=== PATIENT | female | born 1955 | race Caucasian/White ===

== ENCOUNTER 2023-10-30 10:06 | Emergency (ER) | payer MEDICARE, OTHER, SELFPAY ==
[2023-10-30 10:08] VITALS: BP 158/78; BMI 32.9
--- NOTE | 2023-10-30 10:13 | ED.GENMED ---
History of Present Illness
General
Chief Complaint: Chest Pain
Source: patient
Exam Limitations: none
Time Seen by Provider: 10/30/23 10:12
History of Present Illness
History of Present Illness:
See MDM
Past History
Past History
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
ED Past Surgical History: Appendectomy, Bowel resection (Colon resection), Cholecystectomy, Gynecological (Hysterectomy) and Other (Bilateral mastectomy)
Social History
Tobacco: Non-smoker
Alcohol: None
Drug: None
Personal:
Living: alone
Employment: Employed
Family History
Family History: Diabetes, Hypertension and Other (Cancer ); Negative Early CAD, CAD or Sudden
Phy Exam
Physical Exam
Physical Exam:
See MDM
Scores
Heart Score for Chest Pain Patients
STEMI patient?: No
History: Moderately Suspicious
ECG: Normal
Age: >/= 65 years
Risk Factors: 1 or 2 Risk Factors
Troponin: </= Normal Limit
Heart Score for Chest Pain Patients: 4
Heart Score Risk: 20.3% MACE over next 6 weeks
Course
Orders/Labs/Results
Orders:
Orders
10/30/23 10:07
Electrocardiogram (*1) Urgent
Reason for Study: Chest Pain
CXR2 [CR Chest - 2 Views ] Urgent
Comment:
Reason For Exam: chest tightness
10/30/23 10:08
EKG- Treatment ONCE
10/30/23 10:28
Complete Blood Count/With Diff Urgent
Comprehensive Metabolic Panel Urgent
Troponin I Urgent
10/30/23 11:53
Troponin I Urgent
Abnormal Lab Results
10/30/23
10:28
RBC 4.07 L 10^6/uL
(4.20-5.40)
Hgb 10.6 L g/dL
(12.0-16.0)
Hct 32.1 L %
(37.0-47.0)
MCV 78.9 L fL
(81.0-99.0)
MCH 26.0 L pg
(27.0-31.0)
RDW 15.1 H %
(11.5-14.5)
MPV 10.5 H fL
(7.4-10.4)
Creatinine 0.5 L mg/dL
(0.6-1.0)
Glucose 124 H mg/dl
(70-99)
Total Protein 6.1 L g/dl
(6.3-8.2)
10/30/23 10:28
10/30/23 10:28
Vital Signs
Initial and Last Documented VS:
Initial Vital Signs
Temp Pulse Resp BP Pulse Ox
98.3 F 86 16 158/78 99
10/30/23 10:08 10/30/23 10:08 10/30/23 10:08 10/30/23 10:08 10/30/23 10:08
Last Documented Vital Signs
Temp Pulse Resp BP Pulse Ox
98.3 F 71 12 158/78 100
10/30/23 10:08 10/30/23 10:15 10/30/23 10:15 10/30/23 10:08 10/30/23 10:30
MDM/Problems Addressed
Differential Diagnosis Includes:
HPI and MDM Narrative:
68-year-old female presenting with chest pain. Patient noticed the chest pressure last night while cooking dinner. She called 911 because symptoms worsened and today. She does complain of shortness of breath when she walks. She denies cardiac
history. Patient given aspirin by EMS
On arrival, she is well-appearing and nontoxic. Heart regular rate and rhythm and lungs clear. Will obtain troponin, EKG and blood work
Physical exam
General: Well appearing and non-toxic
HEENT: protecting airway
Neck: appears supple
CV: No evidence of cyanosis. Regular rate and rhythm
Resp: No accessory muscle use. Lungs clear
Abd: Non-distended
Extremities: No deformities
Neuro: alert
Psych: Normal affect
Skin: Intact
Problems Addressed including Acute and Chronic Conditions affecting care:
1. Chest pain
Acuity: acute
Prognosis: stable
Details: EKG does not ischemic. Will obtain troponin and chest x-ray
Updates
Chest x-ray clear. Troponin negative x 2. Patient remains comfortable appearing. Given age and complaint, will place on cardiology callback tracker. Discussed calling PCP for earliest appointment
Differential Diagnosis (but not limited to): Noncardiac chest pain, ACS
Testing considered: D-dimer
Drug therapy (if applicable): OTC meds, please see d/c instruction regarding Rx drugs
Amount and/or Complexity of Data Reviewed
Clinical info obtained from: Patient
External data reviewed: N/A
Labs I independently reviewed (but not limited to): Troponin negative times
Radiology: X-ray independently reviewed: Chest x-ray clear
Pulse Ox: not hypoxic
EKG independently reviewed: Sinus rhythm, normal axis, No stemi
Transportation Job Titles: N/A
Critical Care: N/A
Risk of Complication:
Social Determinants of health: Good social support
Discussed with other providers: N/A
Escalation of Care includes Admit/Obs: After being observed in the Emergency Department, pt stable for discharge.
Occasional wrong word or 'sound a like' substitutions may have occurred due to the inherent limitations of voice recognition software. Read the chart carefully and recognize, using context, where substitutions have occurred.
*Critical Care Note
Total Time (30-74mins, 75-104mins- exclusive of procedures): Not Applicable
ED Attending Note
-
Portions of this chart may have been created with voice recognition software.� Occasional wrong word or��sound alike� substitutions may have occurred due to the inherent limitations of voice recognition software.
Discharge Plan
Departure
Patient Disposition: Home (Routine Discharge)
Date of Disposition: 10/30/23
Time of Disposition: 12:58
Patient with high blood pressure during this ER visit?: Yes
Discharge Problem:
Chest pain
Instructions: Chest Pain CBC Follow Up, BLOOD PRESSURE
Prescriptions:
No Action
albuterol sulfate 1 PUFF HFA aerosol inhaler
2 puff inhalation R Q4HPRN PRN (Reason: wheezing)
metformin 500 MG tablet extended release 24 hr
500 mg PO BID
amlodipine 5 MG tablet
5 mg PO DAILY
gabapentin 300 MG capsule
300 mg PO BID
acetaminophen [Tylenol Extra Strength] 500 MG tablet
1,000 mg PO Q6HPRN PRN (Reason: mild pain)
diazepam [Valium] 5 mg tablet
5 mg PO HS PRN (Reason: muscle spasm) Qty: 8 0RF
naproxen 500 mg tablet
500 mg PO BID PRN (Reason: pain) Qty: 15 0RF
Referrals:
Anish Moreno MD [Active] -
William Conte MD [Family Provider] -
Activity Restrictions/Additional Instructions:
Please return for any worsening symptoms.
You may return at any time if you have further concerns.
Please follow up with your doctor at the first available appointment, preferably this week.
You were placed on the cardiac callback tracker. Someone from their office should call you in the next few days. If you do not hear from them in the next few days, please give them a call.
Thank you for choosing [facility].
Interventions
Interventions:
*Risk Screen - Suicide Last Done: 10/30/23 10:08
*General Assessment Last Done: 10/30/23 10:08
*Neglect/Abuse Screening Last Done: 10/30/23 10:08
ED- Fall Risk Assessment Last Done: 10/30/23 10:08
*ED COVID-19 Vaccine History Last Done: 10/30/23 10:08
ED- Cardiac Assessment Last Done: 10/30/23 10:08
[2023-10-30 10:37] LABS: % Basophils 0.4 % (0-2); % Eosinophils 1.3 % (0-6); % Immature Granulocytes 0.4 % (0-0.5); % Lymphocytes 33.8 % (20.5-51.1); % Monocytes 5.5 % (1.7-9.3); % Neutrophils 58.6 % (42.2-75.2); Absolute Eosinophils 0.1 10^3/uL (0-0.7); Absolute Lymphocytes 1.6 10^3/uL (1.2-3.4); Absolute Monocytes 0.3 10^3/uL (0.1-0.6); Absolute Neutrophils 2.8 10^3/uL (1.4-6.5); Hematocrit 32.1 % (37.0-47.0); Hemoglobin 10.6 g/dL (12.0-16.0); Mean Corpuscular Volume 78.9 fL (81.0-99.0); Mean Platelet Volume 10.5 fL (7.4-10.4); Nucleated Red Blood Cells % 0 %; Platelet Count 177 10^3/uL (130-400); Red Blood Cell Count 4.07 10^6/uL (4.20-5.40); Red Cell Dist. Width 15.1 % (11.5-14.5); White Blood Cell Count 4.8 10^3/uL (4.8-10.8)
[2023-10-30 11:02] LABS: ALT (SGPT) 19 U/L (0-35); AST (SGOT) 23 U/L (14-36); Albumin 3.7 g/dl (3.5-5.0); Alkaline Phosphatase 69 U/L (38-126); Blood Urea Nitrogen 15 mg/dl (7-17); Calcium 8.6 mg/dl (8.4-10.2); Carbon Dioxide 26 mmol/L (22-30); Chloride 104 mmol/L (98-107); Estimated Creatinine Clearance 93 ml/min; Glucose 124 mg/dl (70-99); Sodium 139 mmol/L (135-145); Total Bilirubin 0.6 mg/dl (0.2-1.3); Total Protein 6.1 g/dl (6.3-8.2); eGFR > 60.00
[2023-10-30 11:04] LABS: Troponin I < 0.012 ng/ml
[2023-10-30 11:18] LABS: Potassium 3.7 mmol/L (3.5-5.1)
[2023-10-30 12:25] LABS: Troponin I < 0.012 ng/ml
== END 2023-10-30 13:35 | disposition home or self-care (01) ==
LOC: EMR 10:06
PROVIDERS: EMERGENCY PHYSICIAN Student in an Organized Health Care Education/Training Program; FAMILY PHYSICIAN Internal Medicine
DX: R07.89 Other chest pain (principal); J45.909 Unspecified asthma, uncomplicated; I10 Essential (primary) hypertension; E11.9 Type 2 diabetes mellitus without complications; G47.30 Sleep apnea, unspecified; Z15.09 Genetic susceptibility to other malignant neoplasm; Z82.49 Family history of ischemic heart disease and other diseases of the circulatory system; Z83.3 Family history of diabetes mellitus; Z85.3 Personal history of malignant neoplasm of breast; Z87.19 Personal history of other diseases of the digestive system; Z90.49 Acquired absence of other specified parts of digestive tract; Z90.710 Acquired absence of both cervix and uterus
CPT/HCPCS: 99283; 71046; 80053; 84484; 85025; 93005

== ENCOUNTER → 2023-11-03 07:32 | Outpatient (REF) | payer MEDICARE, OTHER, SELFPAY | LOC: DHCBC/DCA 07:32 | PROVIDERS: ATTENDING PHYSICIAN Internal Medicine Cardiovascular Disease; FAMILY PHYSICIAN Internal Medicine | DX: R07.89 Other chest pain (principal); R06.09 Other forms of dyspnea; E11.9 Type 2 diabetes mellitus without complications; I44.4 Left anterior fascicular block | CPT/HCPCS: 78452; 93017; A9500 ==

== ENCOUNTER → 2023-11-17 10:57 | Outpatient (REF) | payer MEDICARE, OTHER, SELFPAY ==
[2023-11-17 15:03] LABS: % Basophils 0.6 % (0-2); % Eosinophils 0.9 % (0-6); % Immature Granulocytes 0.3 % (0-0.5); % Lymphocytes 37.3 % (20.5-51.1); % Monocytes 4.6 % (1.7-9.3); % Neutrophils 56.3 % (42.2-75.2); Absolute Eosinophils 0.1 10^3/uL (0-0.7); Absolute Lymphocytes 2.6 10^3/uL (1.2-3.4); Absolute Monocytes 0.3 10^3/uL (0.1-0.6); Hemoglobin 10.8 g/dL (12.0-16.0); Mean Corp Hgb Conc. 32.7 g/dL (33.0-37.0); Mean Corpuscular Hgb 25.7 pg (27.0-31.0); Mean Corpuscular Volume 78.4 fL (81.0-99.0); Mean Platelet Volume 11.1 fL (7.4-10.4); Nucleated Red Blood Cells % 0 %; Platelet Count 207 10^3/uL (130-400); Red Blood Cell Count 4.21 10^6/uL (4.20-5.40); Red Cell Dist. Width 14.9 % (11.5-14.5)
[2023-11-17 15:45] LABS: ALT (SGPT) 13 U/L (0-35); AST (SGOT) 22 U/L (14-36); Albumin 3.8 g/dl (3.5-5.0); Alkaline Phosphatase 78 U/L (38-126); Blood Urea Nitrogen 18 mg/dl (7-17); Calcium 9.1 mg/dl (8.4-10.2); Carbon Dioxide 30 mmol/L (22-30); Chloride 99 mmol/L (98-107); Glucose 96 mg/dl (70-99); Iron 58 ug/dl (37-170); Potassium 4.3 mmol/L (3.5-5.1); Sodium 138 mmol/L (135-145); Total Bilirubin 0.6 mg/dl (0.2-1.3); Total Protein 6.3 g/dl (6.3-8.2); eGFR > 60.00
[2023-11-17 15:55] LABS: Percent Saturation 15 % (20-50); Total Iron Binding Capacity 366 ug/dl (265-497)
[2023-11-17 16:03] LABS: Ferritin 25.9 ng/ml (11.1-264.0)
== END ==
LOC: DHCBC HW 10:57
PROVIDERS: ATTENDING PHYSICIAN Internal Medicine Cardiovascular Disease; FAMILY PHYSICIAN Internal Medicine; REFERRING PHYSICIAN Internal Medicine Hematology & Oncology
DX: R07.89 Other chest pain (principal); R06.09 Other forms of dyspnea; E11.9 Type 2 diabetes mellitus without complications; I44.4 Left anterior fascicular block; C18.2 Malignant neoplasm of ascending colon; Z15.09 Genetic susceptibility to other malignant neoplasm; E11.36 Type 2 diabetes mellitus with diabetic cataract
CPT/HCPCS: 36415; 80053; 82378; 82728; 83540; 83550; 85025; 93306

== ENCOUNTER → 2024-01-02 12:08 | Outpatient (REF) | payer MEDICARE, OTHER, SELFPAY ==
[2024-01-02 12:29] VITALS: BP 145/60; BP_SYST 67
== END ==
LOC: RADI 12:08
PROVIDERS: ATTENDING PHYSICIAN Internal Medicine Hematology & Oncology
DX: Z45.2 Encounter for adjustment and management of vascular access device (principal); C18.2 Malignant neoplasm of ascending colon; Z92.21 Personal history of antineoplastic chemotherapy
CPT/HCPCS: 36590; 77001

== ENCOUNTER 2024-01-03 18:55 | Observation (INO) | payer MEDICARE, OTHER, SELFPAY ==
[2024-01-03] VITALS (18 sets, daily range): BP systolic 105–157; BP diastolic 53–110; PULSE 77; BMI 32.7
--- NOTE | 2024-01-03 10:25 | ED.GENMED ---
History of Present Illness
General
Chief Complaint: Fainting/Passed Out
Source: patient and ambulance crew
Exam Limitations: none
Time Seen by Provider: 01/03/24 09:44
Nursing documentation reviewed up to this point in time: agreed with
Travel History
Have you had any contact with someone who has COVID-19?: No
Do you have any symptoms of coronavirus? Fever > 100 degrees, chills, cough, shortness of breath, sore throat, loss of taste or smell, muscle aches, or headache?: No
History of Present Illness
History of Present Illness:
68-year-old female with past medical history as documented presents to the emergency room for evaluation after syncopal episode. Patient notably has distant history of breast cancer, colon cancer and is status posttreatment; she previously had
subcutaneous port which was removed here yesterday at outside hospital. She presents today to the emergency room for evaluation after syncopal event. Patient reports that she was in her normal state of health when she went to bed last night. She
felt generally well when she woke up this morning. She says she went to the kitchen to prepare herself some tea and while she was standing in the kitchen she felt dizzy and fainted. She says that she struck her right side on the ground and has
some mild pain in the right ribs, right hip as well as in her low back. She also has had some nausea since syncopal event and said she vomited x 1. She denies any chest pain. She denies any shortness of breath. Denies any headache. Denies any
neck pain. She is now on any blood thinners. She was given Zofran from EMS which she states did not significantly help with her nausea.
Past History
Past History
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
ED Past Surgical History: Appendectomy, Bowel resection (Colon resection), Cholecystectomy, Gynecological (Hysterectomy) and Other (Bilateral mastectomy)
Social History
Tobacco: Non-smoker
Alcohol: None
Drug: None
Personal:
Living: alone
Employment: Employed
Family History
Family History: Diabetes, Hypertension and Other (Cancer ); Negative Early CAD, CAD or Sudden
Review of Systems
Review of Systems
All Other Systems: ROS reviewed and negative except as documented in HPI and ROS
Constitutional: Denies fever or chills
EENT: Denies sore throat or runny nose
Respiratory: Denies cough or trouble breathing
Cardiac: Reports syncope; Denies chest pain, diaphoresis or palpitations
ABD/GI: Reports nausea and vomiting; Denies abdominal pain or diarrhea
: Denies flank pain
Musculoskeletal: Reports back pain and other (Right hip pain, right rib pain); Denies neck pain
Neurological: Reports dizzy; Denies headache, weakness or numbness
Phy Exam
Physical Exam
Physical Exam:
General: Awake, alert, oriented x3; no acute distress
Head: Normocephalic, atraumatic
Eyes: Conjunctiva normal, EOMI, pupils equal round and reactive to light bilaterally
Throat: Airway intact, handling secretions
Neck: Trachea midline, no tenderness in the cervical spine
Back: No signs of trauma to the back or flank, mild right paraspinal tenderness at the level of L2 but no midline lumbar thoracic tenderness and no posterior rib tenderness
Lungs: Clear to auscultation bilaterally, no wheezing, rales, rhonchi
Heart: Regular rate and rhythm, no murmurs, gallops, or rubs; she has some mild tenderness mid axillary line right ribs 4 through 6 but no ecchymosis and no crepitus
Abd: Soft, non distended, nontender
Neuro: Cranial nerves grossly intact, speech fluid
Skin: no rash, no ecchymosis, no lacerations or abrasions
Extremities: Atraumatic, able to move both upper and lower extremities through full active range of motion without discomfort, warm and well-perfused
Scores
Heart Failure Risk
Heart Failure Risk Score: Not Applicable
Heart Score for Chest Pain Patients
STEMI patient?: Not applicable
Withdrawal Assessment of Alcohol
Withdrawal Assessment Completed?: Not applicable
Course
Orders/Labs/Results
Orders:
Orders
01/03/24 09:47
Electrocardiogram (*1) Urgent
Reason for Study: Syncope
Bedside Glucose- Treatment ONCE
EKG- Treatment ONCE
01/03/24 10:10
CR Lumbar Spine 2 Or 3 Views Urgent
Comment:
Reason For Exam: low back pain s/p fall
CR Pelvis Comp Min 3 Views Urgent
Comment:
Reason For Exam: right hip pain s/p fall
CR Ribs-right 3 Vw W/pa Chest* Urgent
Comment:
Reason For Exam: right rib ttp s/p fall
01/03/24 10:11
CT Head W/o Iv Contrast Urgent
Comment:
Reason For Exam: syncope, nausea, vomiting
01/03/24 10:21
COVID-19 Antigen Urgent
Source: Nasal Swab
Complete Blood Count/With Diff Urgent
Comprehensive Metabolic Panel Urgent
Lipase Urgent
Monotest Urgent
Comment: ADD
Troponin I Urgent
Influenza A+B Rapid Molecular Urgent
ABEL Source: Nasal Swab
Specimen Description:
01/03/24 10:27
Diphenhydramine [Benadryl] 25 mg IV NOW STA
Metoclopramide [Reglan] 10 mg IV NOW STA
01/03/24 11:09
Add On- LAB Urgent
Tests Added?: monotest
01/03/24 13:19
Troponin I Urgent
Abnormal Lab Results
01/03/24
10:21
Hgb 11.0 L g/dL
(12.0-16.0)
Hct 34.4 L %
(37.0-47.0)
MCV 79.4 L fL
(81.0-99.0)
MCH 25.4 L pg
(27.0-31.0)
MCHC 32.0 L g/dL
(33.0-37.0)
RDW 15.3 H %
(11.5-14.5)
Glucose 140 H mg/dl
(70-99)
AST 132 H U/L
(14-36)
ALT 49 H U/L
(0-35)
01/03/24 10:21
01/03/24 10:21
Vital Signs
Initial and Last Documented VS:
Initial Vital Signs
Temp Pulse Resp BP Pulse Ox
36.8 C 68 16 122/110 100
01/03/24 09:51 01/03/24 09:51 01/03/24 09:51 01/03/24 09:51 01/03/24 09:51
Last Documented Vital Signs
Temp Pulse Resp BP Pulse Ox
36.8 C 72 8 152/65 96
01/03/24 09:51 01/03/24 13:15 01/03/24 13:15 01/03/24 13:00 01/03/24 13:15
MDM/Problems Addressed
Differential Diagnosis Includes:
Syncope: Vasovagal syncope, postural/orthostatic syncope, symptomatic anemia, electrolyte derangement, cardiac dysrhythmia; nothing by history or exam to suggest massive PE, subarachnoid hemorrhage, ruptured AAA in my judgment no further workup for
these diagnoses is indicated
Musculoskeletal complaints: Fracture, contusion
MDM/Problems Addressed:
68-year-old female presents for evaluation after syncopal event, passed out while she was standing in the kitchen making herself tea this morning. Has had some nausea and 1 episode of vomiting since. She complains mainly of pain in her right ribs,
right hip, low back. Vitals and exam as above. Fortunately she is not on anticoagulation. Will plan to place an IV check labs including a CBC and a CMP, lipase, troponin. Send viral swabs. Check stat EKG. Will send for x-ray of the ribs/chest,
lumbar spine, pelvis. Will send for a CT of the head. Will treat symptomatically. Monitor closely reassess after the above.
Labs reviewed: CBC shows stable anemia, CMP shows marginally abnormal LFTs no other clinically significant abnormalities. Her troponin is undetectable. Viral swabs have been negative. CT head negative. X-rays of the ribs/chest, pelvis, lumbar
spine all reviewed by me and showed no acute posttraumatic pathology. Vitals have remained stable here throughout ED visit the patient remains mildly nauseated. She feels uncomfortable going home because she is still feeling slightly lightheaded
even sitting in bed. Will plan to admit for observation on telemetry given drop syncope with no prodrome. Discussed with hospitalist for admission.
Acute Exacerbation and/or Progression of Chronic Illness:
Acutely hypertensive
Acute Exacerbation and/or Progression of Chronic Illness: HTN
*Radiology
Radiology exam reviewed: preliminary read by ED provider and radiology read reviewed
*Pulse Oximetry
Patient hypoxic: no
*EKG
Interpreted by ED Provider?: Yes
Comparison EKG: no changes
Heart Rate: 68
Rate: normal
Rhythm: sinus
[place]: left axis deviation
Interval: normal interval
QRS Pattern: left vent hypertrophy
Ischemia: no ischemia
*Critical Care Note
Total Time (30-74mins, 75-104mins- exclusive of procedures): Not Applicable
Data Reviewed
Review of Other/Old Records Reveals: Labs and Records
Source: patient, records and ambulance crew
Patient Management
Discussion with other providers: Hospitalist (Discussed with hospitalist)
Escalation/DeEscalation of care consider admission/obs:
Admission indicated
ED Attending Note
-
Portions of this chart may have been created with voice recognition software.� Occasional wrong word or��sound alike� substitutions may have occurred due to the inherent limitations of voice recognition software.
Discharge Plan
Departure
Patient Disposition: Admit
Date of Disposition: 01/03/24
Time of Disposition: 13:24
Admit to doctor: Tamir
Presentation/result/management discussed w/ accepting MD/DO: Hospitalist
Discharge Problem:
Syncope and collapse, Nausea, Abnormal LFTs
Prescriptions:
No Action
albuterol sulfate 1 PUFF HFA aerosol inhaler
2 puff inhalation R Q4HPRN PRN (Reason: wheezing)
metformin 500 MG tablet extended release 24 hr
500 mg PO BID
amlodipine 5 MG tablet
5 mg PO DAILY
gabapentin 300 MG capsule
300 mg PO BID
acetaminophen [Tylenol Extra Strength] 500 MG tablet
1,000 mg PO Q6HPRN PRN (Reason: mild pain)
diazepam [Valium] 5 mg tablet
5 mg PO HS PRN (Reason: muscle spasm) Qty: 8 0RF
naproxen 500 mg tablet
500 mg PO BID PRN (Reason: pain) Qty: 15 0RF
Referrals:
William Conte MD [Family Provider] -
Interventions
Interventions:
*Risk Screen - Suicide Last Done: 01/03/24 09:52
*Neglect/Abuse Screening Last Done: 01/03/24 09:52
ED- Fall Risk Assessment Last Done: 01/03/24 09:54
*ED COVID-19 Vaccine History Last Done: 01/03/24 09:54
ED- Cardiac Assessment Last Done: 01/03/24 10:24
ED- Neurological Assessment Last Done: 01/03/24 10:24
ED Swallowing Screen Last Done: 01/03/24 13:21
Discharge Date and Time
Print Language: PALAUAN
[2024-01-03 10:34] LABS: % Basophils 0.4 % (0-2); % Eosinophils 0.9 % (0-6); % Immature Granulocytes 0.4 % (0-0.5); % Lymphocytes 28.1 % (20.5-51.1); % Monocytes 6.2 % (1.7-9.3); Absolute Eosinophils 0.1 10^3/uL (0-0.7); Absolute Lymphocytes 1.5 10^3/uL (1.2-3.4); Absolute Monocytes 0.3 10^3/uL (0.1-0.6); Absolute Neutrophils 3.5 10^3/uL (1.4-6.5); Hematocrit 34.4 % (37.0-47.0); Mean Corpuscular Hgb 25.4 pg (27.0-31.0); Mean Corpuscular Volume 79.4 fL (81.0-99.0); Mean Platelet Volume 10.4 fL (7.4-10.4); Nucleated Red Blood Cells % 0 %; Platelet Count 168 10^3/uL (130-400); Red Blood Cell Count 4.33 10^6/uL (4.20-5.40); Red Cell Dist. Width 15.3 % (11.5-14.5); White Blood Cell Count 5.5 10^3/uL (4.8-10.8)
[2024-01-03 10:44] LABS: COVID-19 Antigen Negative (Negative)
[2024-01-03] MEDS: REGLAN 10 MG IV (10:45)
[2024-01-03] MEDS: BENADRYL 25 MG IV (10:46)
[2024-01-03 11:05] LABS: ALT (SGPT) 49 U/L (0-35); AST (SGOT) 132 U/L (14-36); Albumin 4.2 g/dl (3.5-5.0); Alkaline Phosphatase 97 U/L (38-126); Blood Urea Nitrogen 17 mg/dl (7-17); Carbon Dioxide 29 mmol/L (22-30); Chloride 104 mmol/L (98-107); Estimated Creatinine Clearance 70 ml/min; Glucose 140 mg/dl (70-99); Lipase 81 U/L (23-300); Potassium 4.2 mmol/L (3.5-5.1); Sodium 137 mmol/L (135-145); Total Bilirubin 0.4 mg/dl (0.2-1.3); Total Protein 6.6 g/dl (6.3-8.2); Troponin I < 0.012 ng/ml; eGFR > 60.00
[2024-01-03 12:20] LABS: Monotest Negative (Negative)
--- NOTE | 2024-01-03 14:24 | HPS.HSE ---
Family Physician
-
Family Physician: Brady Conte
Chief Complaint
-
Fainting
History of Present Illness
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 Denies fever chills coughing sneezing constipation diarrhea
shaking incontinence chest pain palpitation shortness or breath. Day prior to symptom onset patient had chest port removed, reported tolerating well. Patient also reported recent diagnosis sinusitis for which she was started on 10 days Augmentin,
6 days ago. VSS, ED evaluation noted mild transaminitis, chronic anemia baseline, but otherwise unremarkable. No acute abn' CT head, Ribs w/ Chest XR, pelvis XR. General malaise however persisted, though nausea vomiting improved with prn
medications reglan benadryl, patient reports feeling week concern that she will fall again if she goes home.
Medical History
Past Medical History
Past Medical History: Reports Other (as above)
Past Surgical History: Reports Other (as above)
Social History
Tobacco: Non-smoker
Alcohol: None
Drug: None
Living: With Family
Family History
Family History: Not pertinent (reviewed)
Allergies / Home Medications
Allergies reflects when Allergies were last updated in [employer].
Home Medications with original date entered in [employer]
Allergy/Medication List:
Allergies
Allergy/AdvReac Type Severity Reaction Status Date / Time
shrimp Allergy SOB/HIVES Verified 08/29/22 09:05
Sulfa (Sulfonamide Allergy Hives Verified 08/29/22 09:05
Antibiotics)
Home Medications
albuterol sulfate 90 mcg/actuation aerosol inhaler 2 puff inhalation R Q4HPRN PRN wheezing 11/21/15
metformin 500 mg tablet,extended release 24 hr 500 mg PO BID Diabetes 11/06/18
amlodipine 5 mg tablet 5 mg PO DAILY Blood Pressure 05/14/19
gabapentin 300 mg capsule 300 mg PO BID Pain 05/14/19
acetaminophen 500 mg tablet (Tylenol Extra Strength) 1,000 mg PO Q6HPRN PRN mild pain 10/21/19
amoxicillin 875 mg-potassium clavulanate 125 mg tablet 1 tab PO BID Infection 01/03/24
atorvastatin 20 mg tablet (Lipitor) 20 mg PO QPM High Cholesterol 01/03/24
Review of Systems
-
A 12 point ROS was completed and negative except as noted: Yes
Constitutional: Reports Other (as below)
Physical Exam
Vital Signs
Vital Signs
Temp Pulse Resp BP Pulse Ox
98.2 F 68 7 141/71 97
01/03/24 09:51 01/03/24 14:00 01/03/24 14:00 01/03/24 14:00 01/03/24 14:00
Physical Exam
General: Other (as below)
Laboratory Results
-
01/03/24 10:21
01/03/24 10:21
Laboratory Results
Total Bilirubin 0.4 mg/dl (0.2-1.3) 01/03/24 10:21
AST 132 U/L (14-36) H 01/03/24 10:21
ALT 49 U/L (0-35) H 01/03/24 10:21
Alkaline Phosphatase 97 U/L (38-126) 01/03/24 10:21
Troponin I < 0.012 ng/ml 01/03/24 10:21
Lipase 81 U/L (23-300) 01/03/24 10:21
Impression/Plan
-
ROS
General: Denies fever chills night sweats unexpected weight loss
Neuro: Reports syncope Denies seizure shaking dizziness vertigo
Psych: denies depression hallucinations confusion manic episodes
Endocrine: Denies polyuria polydipsia polyphagia heat/cold intolerance
HEENT: Denies blindness visual disturbances epistaxis
Pulmonary: denies coughing hemoptysis sneezing sob dyspnea on exertion
Cardiovascular: denies chest pain palpitations leg swelling
Hematology: denies signs symptoms of anemia easy bruising/bleeding
Gastrointestinal: reports nausea vomiting
Genito-Urinary: denies retention incontinence dysuria
Musculoskeletal: denies joint pain weakness
Dermatology: denies rash laceration bruising
Physical Exam
General: No pallor, cyanosis, or jaundice. Obese
HEENT: Throat clear. PERRLA Normocephalic atraumatic
NECK: Supple. No JVD Carotid Bruits
RESPIRATORY: Lungs clear to auscultation. No crackles wheezes stridor
CVS: S1, S2 normal. RRR. No murmur, rub or gallop.
ABDOMEN: Soft, non-tender. No distension. BS+/normal.
EXTREMITIES: No peripheral cyanosis or edema.
CARD HANGER: AOx3
IMPRESSION:
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 Denies fever chills coughing sneezing constipation diarrhea
shaking incontinence chest pain palpitation shortness or breath. Day prior to symptom onset patient had chest port removed, reported tolerating well. Patient also reported recent diagnosis sinusitis for which she was started on 10 days Augmentin,
6 days ago. VSS, ED evaluation noted mild transaminitis, chronic anemia baseline, but otherwise unremarkable. No acute abn' CT head, Ribs w/ Chest XR, pelvis XR. General malaise however persisted, though nausea vomiting improved with prn
medications reglan benadryl, patient reports feeling week concern that she will fall again if she goes home.
PLAN:
#Syncope unclear etiology
#possible viral gastroenteritis
Tele observation
monitor orthostatic vitals
fall precautions
PT eval
#Asthma
stable respiratory status on room air
cont home prn albuterol
#MITCH
CPAP bedtime
#HTN
cont home Amlodipine with holding parameters
#Sinusitis
cont outpatient prescribed Augmentin
#NIDDM
October 2023 A1c 6.5
cont home metformin
diabetic diet
low dose sliding scale
dvt ppx Lovenox
meds reconciled and resumed as appropriate
Full Code as per patient
I spent a total of 80 minutes with the patient or on the floor. More than 50% of this time involved counseling and coordination of care.
[2024-01-03 14:43] LABS: Troponin I < 0.012 ng/ml
[2024-01-03 21:07] LABS: Glucose - Point of Care 123 mg/dl (70-99)
[2024-01-03] MEDS: LIPITOR 20 MG PO (21:12)
[2024-01-03] MEDS: GLUCOPHAGE XR EXTENDED RELEASE 500 MG PO (21:12)
[2024-01-03] MEDS: AUGMENTIN 875 MG/125 MG 1 TABLET PO (21:12)
[2024-01-03] MEDS: NEURONTIN 300 MG PO (21:12)
[2024-01-03] MEDS: LOVENOX 40 MG SC (21:12)
[2024-01-04] VITALS (13 sets, daily range): BP systolic 113–145; BP diastolic 49–80; PULSE 66–73; O2SAT 97
[2024-01-04 05:29] LABS: Glucose - Point of Care 102 mg/dl (70-99)
[2024-01-04 05:57] LABS: Hematocrit 33.1 % (37.0-47.0); Hemoglobin 10.8 g/dL (12.0-16.0); Mean Corp Hgb Conc. 32.6 g/dL (33.0-37.0); Mean Corpuscular Hgb 25.2 pg (27.0-31.0); Mean Corpuscular Volume 77.3 fL (81.0-99.0); Mean Platelet Volume 10.2 fL (7.4-10.4); Platelet Count 177 10^3/uL (130-400); Red Blood Cell Count 4.28 10^6/uL (4.20-5.40); Red Cell Dist. Width 15.3 % (11.5-14.5); White Blood Cell Count 5.5 10^3/uL (4.8-10.8)
[2024-01-04 06:29] LABS: ALT (SGPT) 43 U/L (0-35); AST (SGOT) 48 U/L (14-36); Albumin 3.8 g/dl (3.5-5.0); Alkaline Phosphatase 92 U/L (38-126); Blood Urea Nitrogen 16 mg/dl (7-17); Calcium 8.6 mg/dl (8.4-10.2); Carbon Dioxide 30 mmol/L (22-30); Chloride 104 mmol/L (98-107); Estimated Creatinine Clearance 80 ml/min; Glucose 99 mg/dl (70-99); Magnesium 1.9 mg/dl (1.6-2.3); Potassium 4.1 mmol/L (3.5-5.1); Sodium 136 mmol/L (135-145); Total Bilirubin 0.5 mg/dl (0.2-1.3); Total Protein 6.2 g/dl (6.3-8.2); eGFR > 60.00
--- NOTE | 2024-01-04 07:08 | W.PN.HOSP.TC ---
Today's Communication/Plan
-
discharge
Assessment / Plan
Assessment / Plan
Physical Exam
General: No pallor, cyanosis, or jaundice. Obese
HEENT: Throat clear. PERRLA Normocephalic atraumatic
NECK: Supple. No JVD Carotid Bruits
RESPIRATORY: Lungs clear to auscultation. No crackles wheezes stridor
CVS: S1, S2 normal. RRR. No murmur, rub or gallop.
ABDOMEN: Soft, non-tender. No distension. BS+/normal.
EXTREMITIES: No peripheral cyanosis or edema.
RADIATION THERAPIST: AOx3
IMPRESSION:
68F hx asthma Ca( Breast Colon Uterine Skin) HTN HLD NIDDM MITCH CPAP Main-rolly Syndrome Colectomy Hysterectomy Mastectomy B/L p/w with new onset fainting/fall followed by nausea vomiting. Denies fever chills coughing sneezing constipation diarrhea
shaking incontinence chest pain palpitation shortness or breath. Day prior to symptom onset patient had chest port removed, reported tolerating well. Patient also reported recent diagnosis sinusitis for which she was started on 10 days Augmentin,
6 days ago. VSS, ED evaluation noted mild transaminitis, chronic anemia baseline, but otherwise unremarkable. No acute abn' CT head, Ribs w/ Chest XR, pelvis XR. General malaise however persisted, though nausea vomiting improved with prn
medications reglan benadryl, patient reports feeling week concern that she will fall again if she goes home.
PLAN:
#Syncope unclear etiology
#possible viral gastroenteritis vs adverse food reaction, self-limited resolved
Tele observation
reports feeling well in AM, eager to go home
PT eval appreciated no needs
#Mild transaminitis
resolving
#Asthma
stable respiratory status on room air
cont home prn albuterol
#MITCH
CPAP bedtime
#HTN
cont home Amlodipine with holding parameters
#Sinusitis
cont outpatient prescribed Augmentin
#NIDDM
A1c 6.7
cont home metformin
diabetic diet
low dose sliding scale
#Mild Microcytic Anemia
stable H&H
outpt follow up
dvt ppx Lovenox
Full Code
Medically stable for discharge home with outpatient follow up recommendations
Total Time Preparing Discharge ___45____ minutes including examination of the patient, summary of the hospital stay, instructions for continuing care to all relevant caregivers; and preparation of discharge records, prescriptions, and referral
forms if necessary.
Anticipated Discharge: Today
Subjective/Interval History
-
Date of Service: January 04, 2024
Seen and examined at bedside in no acute distress sitting up comfortably in bed. Reports symptom resolution feeling well. Ambulating without issues. Denies lightheadedness. Reports resolution nausea vomiting, tolerating diet. Denies new acute
issues. Eager to go home.
Objective Data
-
Labs:
Laboratory Results
01/04/24 01/04/24
05:28 05:31
WBC 5.5
Hgb 10.8 L
Hct 33.1 L
Plt Count 177
APTT Cancelled
Sodium 136
Potassium 4.1
Chloride 104
Carbon Dioxide 30
BUN 16
Creatinine 0.7
Glucose 99
Calcium 8.6
Total Bilirubin 0.5
AST 48 H
ALT 43 H
Alkaline Phosphatase 92
Vital Signs:
Vital Signs
Temp Pulse Resp BP Pulse Ox
98.2 F 66 15 144/59 97
01/03/24 09:51 01/04/24 07:00 01/03/24 20:38 01/04/24 07:00 01/04/24 07:00
[2024-01-04] MEDS: NORVASC 5 MG PO (07:50)
[2024-01-04] MEDS: AUGMENTIN 875 MG/125 MG 1 TABLET PO (07:50)
[2024-01-04] MEDS: GLUCOPHAGE XR EXTENDED RELEASE 500 MG PO (07:50)
[2024-01-04] MEDS: NEURONTIN 300 MG PO (07:52)
[2024-01-04 07:58] LABS: Glucose - Point of Care 107 mg/dl (70-99)
[2024-01-04 08:42] LABS: Glycohemoglobin (HgbA1c) 6.7 % (4.0-5.6)
--- NOTE | 2024-01-04 11:08 | W.DCSUMMARY ---
Discharge Summary
Discharge Data
Date of Admission: 01/03/24
Date of Discharge: 01/04/24
-
Pending Results: No
Hospital Course
68F hx asthma Ca( Breast Colon Uterine Skin) HTN HLD NIDDM MITCH CPAP Main-rolly Syndrome Colectomy Hysterectomy Mastectomy B/L p/w with new onset fainting/fall followed by nausea vomiting. Denied fever chills coughing sneezing constipation diarrhea
shaking incontinence chest pain palpitation shortness or breath. Day prior to symptom onset patient had chest port removed, reported tolerating well. Patient also reported recent diagnosis sinusitis for which she was started on 10 days Augmentin,
6 days ago. VSS, ED evaluation noted mild transaminitis, chronic anemia baseline, but otherwise unremarkable. No acute abn' CT head, Ribs w/ Chest XR, pelvis XR. General malaise however persisted, though nausea vomiting improved with prn
medications reglan benadryl, patient reported feeling week concerned that she would fall again if she goes home. Syncope unclear etiology, possible viral gastroenteritis vs adverse food reaction, self-limited resolved. Tele observation overnight,
pt reported feeling well in AM, eager to go home. PT eval appreciated no needs. Mild transaminitis resolving, medically stable, patient was discharged home with outpatient follow up recommendations.
Discharge Plan
-
Patient Disposition: Home (Routine Discharge)
Discharge Diagnosis/Procedures: Syncope Nausea Vomiting possible viral gastroenteritis vs adverse food reaction self-limited/resolved, mild microcytic anemia, mild transaminitis (liver enzyme elevation) resolving
Condition: Good
Diet: Diabetic, Carb Controlled
Activity: As tolerated
Driving Restrictions: As prior to admission
Bathing Restrictions: None
Blood Work: Please repeat CBC and CMP with primary care provider in 1 week of discharge
Activity Restrictions/Additional Instructions:
Please follow up with primary care provider in 1 week of discharge.
Referrals:
William Conte MD [Family Provider] - in one week
Prescriptions:
Continued
albuterol sulfate 1 PUFF HFA aerosol inhaler
2 puff inhalation R Q4HPRN PRN (Reason: wheezing)
metformin 500 MG tablet extended release 24 hr
2,000 mg PO QPM
amlodipine 5 MG tablet
5 mg PO DAILY
gabapentin 300 MG capsule
300 mg PO BID
acetaminophen [Tylenol Extra Strength] 500 MG tablet
1,000 mg PO Q6HPRN PRN (Reason: mild pain)
atorvastatin [Lipitor] 20 mg Tablet
20 mg PO QPM
Discharge Orders:
Discharge Patient (As Directed); Ordered 01/04/24
Ordered By: Cliff Chau
Discharge Date and Time
Discharge Date/Time: 01/04/24 13:03
Print Language: UKRAINIAN
--- NOTE | 2024-01-04 16:38 | CM ---
Patient seen at bedside in ED. Patient stated that she lives with her sister and is her caregiver. Patient home is a 2 story home and she has no DME for herself. Patient PCP is Dr. Martins and she uses [facility] in [place]. Patient plan is home with
her sister. Patient completed OBS/HUFF form and signed form provided to equal opportunity counselor for scanning. Patient stated her sister's aide is with her and sister is sales secretary. CM will continue to follow for discharge planning needs.
Plan; home with no needs watch for VN needs
== END 2024-01-04 13:03 | disposition home or self-care (01) ==
LOC: ED 18:55
PROVIDERS: ADMITTING PHYSICIAN Internal Medicine; EMERGENCY PHYSICIAN Emergency Medicine; FAMILY PHYSICIAN Internal Medicine
PROC: 5A09357 Assistance with Respiratory Ventilation, Less than 24 Consecutive Hours, Continuous Positive Airway Pressure (ICD-10-PCS; 2024-01-03)
DX: R55 Syncope and collapse (principal); R11.2 Nausea with vomiting, unspecified; J32.9 Chronic sinusitis, unspecified; I10 Essential (primary) hypertension; E87.8 Other disorders of electrolyte and fluid balance, not elsewhere classified; J45.909 Unspecified asthma, uncomplicated; E11.9 Type 2 diabetes mellitus without complications; G47.33 Obstructive sleep apnea (adult) (pediatric); D50.9 Iron deficiency anemia, unspecified; E78.5 Hyperlipidemia, unspecified; R74.01 Elevation of levels of liver transaminase levels; Z11.52 Encounter for screening for COVID-19; Z79.84 Long term (current) use of oral hypoglycemic drugs; Z79.899 Other long term (current) drug therapy; Z85.038 Personal history of other malignant neoplasm of large intestine; Z85.3 Personal history of malignant neoplasm of breast
CPT/HCPCS: 70450; 71101; 72100; 72190; 80053; 82962; 83036; 83690; 83735; 84484; 85025; 85027; 86308; 87502; 87811; 93005; 94660; 96374; 96375; 99285; G0378

== ENCOUNTER 2024-01-08 11:17 | Emergency (ER) | payer MEDICARE, OTHER, SELFPAY ==
[2024-01-08 11:18] VITALS: BMI 32.2
[2024-01-08 11:21] VITALS: BP 156/71
--- NOTE | 2024-01-08 11:38 | ED.GENMED ---
History of Present Illness
General
Chief Complaint: Chest Pain
Source: patient
Exam Limitations: none
Time Seen by Provider: 01/08/24 11:21
Nursing documentation reviewed up to this point in time: agreed with
Travel History
Have you had any contact with someone who has COVID-19?: No
Do you have any symptoms of coronavirus? Fever > 100 degrees, chills, cough, shortness of breath, sore throat, loss of taste or smell, muscle aches, or headache?: No
History of Present Illness
History of Present Illness:
68-year-old female past medical history of sarcoidosis diabetes anemia recently admitted to [facility] after syncopal episode discharged 4 days ago presenting to the emergency department with concerns of generalized weakness and leg heaviness
over the past 2 days also had an episode of chest pain yesterday no chest pain at all today. Went to an urgent care and she was told her EKG had concerning features and was told to go to the ER. Denies any significant symptoms when resting in the
ER bed but claims that if she were to try to stand up that she would likely feel weak. Denies specific nausea vomiting fevers cough
Past History
Past History
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
ED Past Surgical History: Appendectomy, Bowel resection (Colon resection), Cholecystectomy, Gynecological (Hysterectomy) and Other (Bilateral mastectomy)
Social History
Tobacco: Non-smoker
Alcohol: None
Drug: None
Personal:
Living: alone
Employment: Employed
Family History
Family History: Diabetes, Hypertension and Other (Cancer ); Negative Early CAD, CAD or Sudden
Review of Systems
Review of Systems
Allergies reviewed?: Yes
All Other Systems: ROS reviewed and negative except as documented in HPI and ROS
Phy Exam
Physical Exam
Physical Exam:
GENERAL: Alert , in no apparent distress
EYE: pupils equal and reactive
NECK: Supple, no significant adenopathy.
ENT: o/p clr, mmm.
CARDIAC: Regular rate and rhythm .
LUNGS: Clear breath sounds bilaterally, no acute respiratory distress, no wheezes/rales/rhonchi
ABDOMEN: Soft, without focal tenderness, no r/g, no cvat
NEUROLOGICAL: Alert and oriented, no focal neuro deficits 5 out of 5 upper and lower extremity strength normal sensation when palpating bilaterally normal finger-nose [id number] no pronator drift
SKIN: Warm and dry, skin intact.
MUSCULOSKELETAL: No edema, well perfused.
PSYCH: Normal and appropriate interaction.
Scores
Heart Score for Chest Pain Patients
STEMI patient?: No
History: Slightly or Non-Suspicious
ECG: Normal
Age: >/= 65 years
Risk Factors: >/= 3 Risk Factors or History of CAD
Troponin: </= Normal Limit
Heart Score for Chest Pain Patients: 4
Heart Score Risk: 20.3% MACE over next 6 weeks
Course
Orders/Labs/Results
Orders:
Orders
01/08/24 11:20
Electrocardiogram (*1) Urgent
Reason for Study: Chest Pain
EKG- Treatment ONCE
01/08/24 11:26
Complete Blood Count/With Diff Urgent
Comprehensive Metabolic Panel Urgent
Free T4 Urgent
Comment: ADD ON
Magnesium Urgent
Comment: ADD ON
TSH Urgent
Comment: ADD ON
Troponin I Urgent
01/08/24 11:35
Add On- LAB Urgent
Tests Added?: tsh free t4, magnesium level
01/08/24 12:26
Pt Eval And Treat Urgent
Activity Level: Ambulate
01/08/24 13:17
Urinalysis Reflex To Culture Urgent
Date Specimen was Collected: 01/08/24
Time Specimen was Collected: 12:59
Abnormal Lab Results
01/08/24
11:26
Hgb 10.8 L g/dL
(12.0-16.0)
Hct 32.7 L %
(37.0-47.0)
MCV 76.6 L fL
(81.0-99.0)
MCH 25.3 L pg
(27.0-31.0)
RDW 15.1 H %
(11.5-14.5)
BUN 18 H mg/dl
(7-17)
Glucose 143 H mg/dl
(70-99)
01/08/24 11:26
01/08/24 11:26
Vital Signs
Initial and Last Documented VS:
Initial Vital Signs
Temp Pulse Resp Pulse Ox
98.2 F 79 16 100
01/08/24 11:18 01/08/24 11:18 01/08/24 11:18 01/08/24 11:18
Last Documented Vital Signs
Temp Pulse Resp BP Pulse Ox
98.2 F 70 12 146/58 99
01/08/24 11:18 01/08/24 13:45 01/08/24 13:45 01/08/24 13:16 01/08/24 13:45
MDM/Problems Addressed
MDM/Problems Addressed:
68-year-old female presenting to the emergency department today with concerns of generalized weakness fatigue over the past few days recently discharged 4 days ago when she was admitted for syncopal episode. On arrival here vital signs are normal
patient in no distress patient denies any specific chest pain shortness of breath nausea vomiting recent illness patient is afebrile. No coughing or upper respiratory symptoms. EKG without significant acute changes. Urinalysis normal labs
unremarkable patient was walked with PT in no distress normal pulse ox did not appear significantly short of breath. Patient with normal vital signs throughout stay normal pulse ox patient appear stable for outpatient management advised for close
outpatient follow-up return precautions given.
*Critical Care Note
Total Time (30-74mins, 75-104mins- exclusive of procedures): Not Applicable
ED Attending Note
-
Portions of this chart may have been created with voice recognition software.� Occasional wrong word or��sound alike� substitutions may have occurred due to the inherent limitations of voice recognition software.
Discharge Plan
Departure
Patient Disposition: Home (Routine Discharge)
Date of Disposition: 01/08/24
Time of Disposition: 14:19
Patient with high blood pressure during this ER visit?: No
Condition: Good
Covid-19: Not Applicable
Discharge Problem:
Generalized weakness
Instructions: Generalized Weakness (DC)
Prescriptions:
No Action
albuterol sulfate 1 PUFF HFA aerosol inhaler
2 puff inhalation R Q4HPRN PRN (Reason: wheezing)
metformin 500 MG tablet extended release 24 hr
2,000 mg PO QPM
amlodipine 5 MG tablet
5 mg PO DAILY
gabapentin 300 MG capsule
300 mg PO BID
acetaminophen [Tylenol Extra Strength] 500 MG tablet
1,000 mg PO Q6HPRN PRN (Reason: mild pain)
atorvastatin [Lipitor] 20 mg Tablet
20 mg PO QPM
Referrals:
William Conte MD [Family Provider] -
Activity Restrictions/Additional Instructions:
You came to the emergency department today with concerns of generalized symptoms. Here you to reassuring evaluation. Please follow close with the primary care doctor and [facility] [employer]. Return to the emergency department for any worsening, new or
concerning symptoms.
Interventions
Interventions:
*Risk Screen - Suicide Last Done: 01/08/24 11:18
*General Assessment Last Done: 01/08/24 11:18
*Neglect/Abuse Screening Last Done: 01/08/24 11:23
ED- Fall Risk Assessment Last Done: 01/08/24 11:18
*ED COVID-19 Vaccine History Last Done: 01/08/24 11:18
ED- Cardiac Assessment Last Done: 01/08/24 11:18
Discharge Date and Time
Print Language: MOROCCAN
[2024-01-08 11:53] LABS: ALT (SGPT) 22 U/L (0-35); AST (SGOT) 22 U/L (14-36); Albumin 4.5 g/dl (3.5-5.0); Alkaline Phosphatase 88 U/L (38-126); Blood Urea Nitrogen 18 mg/dl (7-17); Calcium 9.5 mg/dl (8.4-10.2); Carbon Dioxide 25 mmol/L (22-30); Chloride 102 mmol/L (98-107); Estimated Creatinine Clearance 69 ml/min; Glucose 143 mg/dl (70-99); Potassium 4.1 mmol/L (3.5-5.1); Sodium 138 mmol/L (135-145); Total Bilirubin 0.4 mg/dl (0.2-1.3); Total Protein 7.1 g/dl (6.3-8.2); eGFR > 60.00
[2024-01-08 11:54] LABS: % Basophils 0.3 % (0-2); % Eosinophils 1.1 % (0-6); % Immature Granulocytes 0.5 % (0-0.5); % Lymphocytes 35.6 % (20.5-51.1); % Monocytes 4.4 % (1.7-9.3); % Neutrophils 58.1 % (42.2-75.2); Absolute Eosinophils 0.1 10^3/uL (0-0.7); Absolute Lymphocytes 2.4 10^3/uL (1.2-3.4); Absolute Monocytes 0.3 10^3/uL (0.1-0.6); Absolute Neutrophils 3.9 10^3/uL (1.4-6.5); Hematocrit 32.7 % (37.0-47.0); Hemoglobin 10.8 g/dL (12.0-16.0); Mean Corpuscular Hgb 25.3 pg (27.0-31.0); Mean Corpuscular Volume 76.6 fL (81.0-99.0); Mean Platelet Volume 10.1 fL (7.4-10.4); Nucleated Red Blood Cells % 0 %; Platelet Count 200 10^3/uL (130-400); Red Blood Cell Count 4.27 10^6/uL (4.20-5.40); Red Cell Dist. Width 15.1 % (11.5-14.5); White Blood Cell Count 6.6 10^3/uL (4.8-10.8)
[2024-01-08 12:00] VITALS: BP 138/63
[2024-01-08 12:04] LABS: Troponin I < 0.012 ng/ml
[2024-01-08 12:34] LABS: Magnesium 1.7 mg/dl (1.6-2.3)
[2024-01-08 13:10] LABS: Free T4 1.03 ng/dl (0.78-2.19)
[2024-01-08 13:16] VITALS: BP 146/58
[2024-01-08 13:23] LABS: TSH 2.36 uIU/ml (0.47-4.68)
[2024-01-08 13:39] LABS: Urine Albumin Negative (Neg - Trace); Urine Bilirubin Negative (Negative); Urine Character Clear (Clear); Urine Color Yellow; Urine Glucose Negative (Negative); Urine Ketone Negative (Negative); Urine Leukocyte Negative (Negative); Urine Nitrite Negative (Negative); Urine Occult Blood Negative (Negative); Urine Specific Gravity 1.015 (<1.030); Urine Urobilinogen Negative (Neg - 1+)
[2024-01-08 14:00] VITALS: BP 139/58
== END 2024-01-08 15:02 | disposition home or self-care (01) ==
LOC: EMR 11:17
PROVIDERS: Emergency Medicine; Physician Assistant; EMERGENCY PHYSICIAN Emergency Medicine; FAMILY PHYSICIAN Internal Medicine
DX: R53.1 Weakness (principal); R53.83 Other fatigue
CPT/HCPCS: 99284; 80053; 81003; 83735; 84439; 84443; 84484; 85025; 93005

== ENCOUNTER → 2024-01-10 09:24 | Outpatient (REF) | payer MEDICARE, OTHER, SELFPAY ==
[2024-01-10 10:46] LABS: Iron 67 ug/dl (37-170)
[2024-01-10 10:57] LABS: Percent Saturation 18 % (20-50); Total Iron Binding Capacity 368 ug/dl (265-497)
== END ==
LOC: REG 09:24
PROVIDERS: ATTENDING PHYSICIAN Internal Medicine
DX: D50.9 Iron deficiency anemia, unspecified (principal)
CPT/HCPCS: 36415; 83540; 83550

== ENCOUNTER → 2024-02-22 09:21 | Outpatient (REF) | payer MEDICARE, OTHER, SELFPAY ==
[2024-02-22 10:04] LABS: % Basophils 0.3 % (0-2); % Eosinophils 1.3 % (0-6); % Immature Granulocytes 0.3 % (0-0.5); % Lymphocytes 33.6 % (20.5-51.1); % Neutrophils 58.5 % (42.2-75.2); Absolute Eosinophils 0.1 10^3/uL (0-0.7); Absolute Monocytes 0.4 10^3/uL (0.1-0.6); Absolute Neutrophils 3.5 10^3/uL (1.4-6.5); Hematocrit 33.6 % (37.0-47.0); Mean Corp Hgb Conc. 32.7 g/dL (33.0-37.0); Mean Corpuscular Hgb 25.5 pg (27.0-31.0); Mean Corpuscular Volume 77.8 fL (81.0-99.0); Mean Platelet Volume 10.3 fL (7.4-10.4); Nucleated Red Blood Cells % 0 %; Platelet Count 191 10^3/uL (130-400); Red Blood Cell Count 4.32 10^6/uL (4.20-5.40); Red Cell Dist. Width 15.3 % (11.5-14.5); White Blood Cell Count 6.1 10^3/uL (4.8-10.8)
[2024-02-22 11:53] LABS: Glycohemoglobin (HgbA1c) 6.6 % (4.0-5.6)
[2024-02-22 12:20] LABS: ALT (SGPT) 14 U/L (0-35); AST (SGOT) 22 U/L (14-36); Albumin 4.2 g/dl (3.5-5.0); Alkaline Phosphatase 86 U/L (38-126); Blood Urea Nitrogen 19 mg/dl (7-17); Calcium 8.7 mg/dl (8.4-10.2); Carbon Dioxide 28 mmol/L (22-30); Chloride 104 mmol/L (98-107); Glucose 108 mg/dl (70-99); HDL Cholesterol 57 mg/dl; LDL Cholesterol, Calculated 58 mg/dl; Potassium 4.7 mmol/L (3.5-5.1); Sodium 140 mmol/L (135-145); Total Bilirubin 0.4 mg/dl (0.2-1.3); Total Cholesterol 133 mg/dl (50-199); Total Protein 6.7 g/dl (6.3-8.2); Triglyceride 91 mg/dl (10-149); Very Low Density Lipoprotein 18 mg/dl (0-30); eGFR > 60.00
== END ==
LOC: REG 09:21
PROVIDERS: ATTENDING PHYSICIAN Internal Medicine
DX: E11.9 Type 2 diabetes mellitus without complications (principal); E11.59 Type 2 diabetes mellitus with other circulatory complications; E78.2 Mixed hyperlipidemia; I10 Essential (primary) hypertension
CPT/HCPCS: 36415; 80053; 80061; 83036; 85025

== ENCOUNTER → 2024-05-14 06:27 | Day surgery (SDC) | payer MEDICARE, OTHER, SELFPAY ==
[2024-05-14 10:07] LABS: Glucose - Point of Care 154 mg/dl (70-99)
== END ==
LOC: GI 06:27
PROVIDERS: ATTENDING PHYSICIAN Internal Medicine Gastroenterology
DX: Z12.11 Encounter for screening for malignant neoplasm of colon (principal); K64.0 First degree hemorrhoids; K22.89 Other specified disease of esophagus; K44.9 Diaphragmatic hernia without obstruction or gangrene; K31.7 Polyp of stomach and duodenum; K31.89 Other diseases of stomach and duodenum; R19.7 Diarrhea, unspecified; D12.5 Benign neoplasm of sigmoid colon; K29.50 Unspecified chronic gastritis without bleeding; K22.70 Barrett's esophagus without dysplasia; Z15.09 Genetic susceptibility to other malignant neoplasm; Z85.038 Personal history of other malignant neoplasm of large intestine
CPT/HCPCS: 45385; 45381; 45380; 43239; 88305; 82962; 88342

== ENCOUNTER → 2024-06-25 11:05 | Outpatient (REF) | payer MEDICARE, OTHER, SELFPAY ==
[2024-06-25 13:59] LABS: ALT (SGPT) 18 U/L (0-35); AST (SGOT) 24 U/L (14-36); Albumin 4.2 g/dl (3.5-5.0); Alkaline Phosphatase 94 U/L (38-126); Direct Bilirubin 0.1 mg/dl (0.0-0.4); Glucose 104 mg/dl (70-99); HDL Cholesterol 48 mg/dl; LDL Cholesterol, Calculated 65 mg/dl; Total Bilirubin 0.6 mg/dl (0.2-1.3); Total Cholesterol 137 mg/dl (50-199); Total Protein 6.6 g/dl (6.3-8.2); Triglyceride 123 mg/dl (10-149); Very Low Density Lipoprotein 24 mg/dl (0-30)
[2024-06-25 14:14] LABS: Glycohemoglobin (HgbA1c) 6.9 % (4.0-5.6)
== END ==
LOC: REG 11:05
PROVIDERS: ATTENDING PHYSICIAN Internal Medicine
DX: E11.9 Type 2 diabetes mellitus without complications (principal); I10 Essential (primary) hypertension; E78.2 Mixed hyperlipidemia
CPT/HCPCS: 36415; 80061; 80076; 82947; 83036

== ENCOUNTER → 2024-08-19 15:39 | Outpatient (REF) | payer MEDICARE, OTHER, SELFPAY | LOC: RAD 15:39 | PROVIDERS: ATTENDING PHYSICIAN Internal Medicine | DX: M79.631 Pain in right forearm (principal) | CPT/HCPCS: 93971 ==

== ENCOUNTER → 2024-10-23 09:22 | Outpatient (REF) | payer MEDICARE, OTHER, SELFPAY ==
[2024-10-23 09:55] LABS: % Basophils 0.7 % (0-2); % Eosinophils 1.6 % (0-6); % Immature Granulocytes 0.3 % (0-0.5); % Lymphocytes 32.3 % (20.5-51.1); % Monocytes 5.6 % (1.7-9.3); % Neutrophils 59.5 % (42.2-75.2); Absolute Eosinophils 0.1 10^3/uL (0-0.7); Absolute Lymphocytes 1.9 10^3/uL (1.2-3.4); Absolute Monocytes 0.3 10^3/uL (0.1-0.6); Absolute Neutrophils 3.4 10^3/uL (1.4-6.5); Hematocrit 35.7 % (37.0-47.0); Hemoglobin 11.5 g/dL (12.0-16.0); Mean Corp Hgb Conc. 32.2 g/dL (33.0-37.0); Mean Corpuscular Hgb 25.3 pg (27.0-31.0); Mean Corpuscular Volume 78.6 fL (81.0-99.0); Mean Platelet Volume 10.7 fL (7.4-10.4); Nucleated Red Blood Cells % 0 %; Platelet Count 204 10^3/uL (130-400); Red Blood Cell Count 4.54 10^6/uL (4.20-5.40); Red Cell Dist. Width 15.4 % (11.5-14.5); White Blood Cell Count 5.8 10^3/uL (4.8-10.8)
[2024-10-23 10:20] LABS: Glycohemoglobin (HgbA1c) 6.9 % (4.0-5.6)
[2024-10-23 12:06] LABS: ALT (SGPT) 15 U/L (0-35); AST (SGOT) 22 U/L (14-36); Albumin 4.4 g/dl (3.5-5.0); Alkaline Phosphatase 80 U/L (38-126); Direct Bilirubin 0.1 mg/dl (0.0-0.4); Glucose 111 mg/dl (70-99); HDL Cholesterol 59 mg/dl; LDL Cholesterol, Calculated 44 mg/dl; Total Bilirubin 0.6 mg/dl (0.2-1.3); Total Cholesterol 130 mg/dl (50-199); Total Protein 6.9 g/dl (6.3-8.2); Triglyceride 137 mg/dl (10-149); Very Low Density Lipoprotein 27 mg/dl (0-30)
== END ==
LOC: REG 09:22
PROVIDERS: ATTENDING PHYSICIAN Internal Medicine
DX: D64.9 Anemia, unspecified (principal); E11.9 Type 2 diabetes mellitus without complications
CPT/HCPCS: 36415; 80061; 80076; 82947; 83036; 85025

== ENCOUNTER 2024-12-20 06:22 | Day surgery (SDC) | payer MEDICARE, OTHER, SELFPAY ==
[2024-12-20 08:39] LABS: Glucose - Point of Care 112 mg/dl (70-99)
== END 2024-12-20 11:05 | disposition home or self-care (01) ==
LOC: GI 06:22
PROVIDERS: ATTENDING PHYSICIAN Internal Medicine Gastroenterology
DX: Z12.11 Encounter for screening for malignant neoplasm of colon (principal); K64.0 First degree hemorrhoids; Z85.038 Personal history of other malignant neoplasm of large intestine; Z15.09 Genetic susceptibility to other malignant neoplasm; Z98.0 Intestinal bypass and anastomosis status
CPT/HCPCS: G0105; 82962

== ENCOUNTER → 2025-02-25 07:33 | Outpatient (REF) | payer MEDICARE, OTHER, SELFPAY ==
[2025-02-25 08:12] LABS: % Basophils 0.4 % (0-2); % Eosinophils 1.6 % (0-6); % Immature Granulocytes 0.6 % (0-0.5); % Monocytes 5.7 % (1.7-9.3); % Neutrophils 61.7 % (42.2-75.2); Absolute Eosinophils 0.1 10^3/uL (0-0.7); Absolute Lymphocytes 2.1 10^3/uL (1.2-3.4); Absolute Monocytes 0.4 10^3/uL (0.1-0.6); Absolute Neutrophils 4.2 10^3/uL (1.4-6.5); Hematocrit 33.9 % (37.0-47.0); Hemoglobin 10.8 g/dL (12.0-16.0); Mean Corp Hgb Conc. 31.9 g/dL (33.0-37.0); Mean Corpuscular Hgb 25.3 pg (27.0-31.0); Mean Corpuscular Volume 79.4 fL (81.0-99.0); Mean Platelet Volume 10.7 fL (7.4-10.4); Nucleated Red Blood Cells % 0 %; Platelet Count 198 10^3/uL (130-400); Red Blood Cell Count 4.27 10^6/uL (4.20-5.40); Red Cell Dist. Width 15.3 % (11.5-14.5); White Blood Cell Count 6.8 10^3/uL (4.8-10.8)
[2025-02-25 08:45] LABS: ALT (SGPT) 15 U/L (0-35); AST (SGOT) 18 U/L (14-36); Albumin 4.2 g/dl (3.5-5.0); Alkaline Phosphatase 79 U/L (38-126); Blood Urea Nitrogen 15 mg/dl (7-17); Calcium 8.7 mg/dl (8.4-10.2); Carbon Dioxide 28 mmol/L (22-30); Chloride 109 mmol/L (98-107); Glucose 122 mg/dl (70-99); HDL Cholesterol 55 mg/dl; Iron 60 ug/dl (37-170); LDL Cholesterol, Calculated 47 mg/dl; Potassium 4.4 mmol/L (3.5-5.1); Sodium 142 mmol/L (135-145); Total Bilirubin 0.5 mg/dl (0.2-1.3); Total Cholesterol 118 mg/dl (50-199); Total Protein 6.6 g/dl (6.3-8.2); Triglyceride 82 mg/dl (10-149); Very Low Density Lipoprotein 16 mg/dl (0-30); eGFR > 60.00
[2025-02-25 08:54] LABS: Percent Saturation 16 % (20-50); Total Iron Binding Capacity 360 ug/dl (265-497)
[2025-02-25 09:11] LABS: TSH Reflex To Free T4 2.85 uIU/ml (0.47-4.68)
[2025-02-25 09:15] LABS: Glycohemoglobin (HgbA1c) 7.2 % (4.0-5.6)
== END ==
LOC: REG 07:33
PROVIDERS: ATTENDING PHYSICIAN Internal Medicine
DX: E11.9 Type 2 diabetes mellitus without complications (principal); Z00.01 Encounter for general adult medical examination with abnormal findings; D64.9 Anemia, unspecified; E78.2 Mixed hyperlipidemia; R53.82 Chronic fatigue, unspecified
CPT/HCPCS: 36415; 80053; 80061; 83036; 83540; 83550; 84443; 85025

== ENCOUNTER 2025-06-11 19:11 | Emergency (ER) | payer MEDICARE, OTHER, SELFPAY ==
[2025-06-11 19:18] VITALS: BP 201/99
[2025-06-11 19:41] LABS: Hematocrit 35.1 % (37.0-47.0); Hemoglobin 11.6 g/dL (12.0-16.0); Mean Corp Hgb Conc. 33.0 g/dL (33.0-37.0); Mean Corpuscular Volume 78.3 fL (81.0-99.0); Nucleated Red Blood Cells % 0 %; Platelet Count 227 10^3/uL (130-400); Red Cell Dist. Width 15.7 % (11.5-14.5)
[2025-06-11 20:01] LABS: ALT (SGPT) 18 U/L (0-35); AST (SGOT) 20 U/L (14-36); Albumin 4.3 g/dl (3.5-5.0); Alkaline Phosphatase 84 U/L (38-126); Blood Urea Nitrogen 13 mg/dl (7-17); Calcium 9.2 mg/dl (8.4-10.2); Carbon Dioxide 28 mmol/L (22-30); Chloride 103 mmol/L (98-107); Glucose 145 mg/dl (70-99); Potassium 4.0 mmol/L (3.5-5.1); Sodium 137 mmol/L (135-145); Total Protein 6.9 g/dl (6.3-8.2); eGFR > 60.00
[2025-06-11 20:11] LABS: Troponin I < 0.012 ng/ml
[2025-06-11 20:23] VITALS: BP 156/71
[2025-06-11 21:00] VITALS: BP 146/84
[2025-06-11] MEDS: TYLENOL 650 MG PO (21:05)
[2025-06-11 22:00] VITALS: BP 140/59
--- NOTE | 2025-06-11 22:28 | ED.GENMED ---
History of Present Illness
General
Chief Complaint: Head Injury
Source: patient and family
Exam Limitations: none
Time Seen by Provider: 06/11/25 19:55
Nursing documentation reviewed up to this point in time: agreed with
History of Present Illness
History of Present Illness:
Note:
CHIEF COMPLAINT(S)
Headache, fall
HISTORY OF PRESENT ILLNESS
Fall 2 days ago. Feeling forgetful. Frontal headache for 2 days. Blood pressure elevated. No chest pain or shortness of breath.
PHYSICAL EXAM
General: Alert, no acute distress.
Skin: Warm, dry.
Head: Normocephalic, atraumatic.
Neck: Supple, trachea midline.
Eye Ears, nose, mouth and throat: Oral mucosa moist.
Cardiovascular: Normal peripheral perfusion, No edema.
Respiratory: Respirations are non-labored.
Gastrointestinal: Abdomen nondistended.
Back: Normal range of motion, Normal alignment.
Musculoskeletal: Normal range of motion, normal strength.
Neurological: Alert and oriented to person, place, time, and situation, No focal neurological deficit observed.
Psychiatric: Cooperative, appropriate mood and affect.
PROBLEM LIST
- Pneumonia, sarcoidosis, hypertension, diabetes oral agent.
PLAN
The patient was reassured that their blood pressure and physical examination were normal. Further plans, tests, or treatments were not discussed in the transcript.
DIFFERENTIAL DIAGNOSIS
The Differential Diagnosis includes, in no particular order and is not limited to: Hypertension, Transient Ischemic Attack, Orthostatic Hypotension, Anxiety, Dehydration, Hypoglycemia, Medication Side Effects, Anemia, Cardiovascular Event,
Neurological Disorder.
CARE-UPDATE
06/11/25 - 22:29
The patient experienced an episode of forgetfulness likely due to a concussion, with no signs suggesting a stroke. Neurological examination shows no deficits. Blood pressure has stabilized with observation, and headache has improved with mild
intervention using Tylenol. Patient is stable for discharge.
EKG
My independent EKG interpretation is:
- Time of EKG not specified.
- Rhythm: Not specified.
- Heart Rate: 79 bpm.
- PA Interval: Normal.
- QRS Duration: Normal.
- [place]: Not specified.
- Notable Findings: Presence of left bundle branch block, left ventricular hypertrophy.
- Abnormalities: Suggestion of ischemia.
Disposition:
SUMMARY OF ENCOUNTER
The patient, a 70-year-old female, presented to the emergency department with an episode of forgetfulness, likely due to a concussion, alongside elevated blood pressure and headache. The patient was evaluated and observed, with blood pressure
stabilizing during the visit. Neurological examination showed no deficits, suggesting no signs of stroke or major neurological event. The patients headache improved with administration of Tylenol, and she showed no signs of adrenal hemorrhage.
DISPOSITION
Discharge
ASSESSMENT
The patient experienced symptoms consistent with a concussion, elevated blood pressure, and headache. The treatment and observation led to stabilization of her symptoms, suggesting no immediate life-threatening conditions.
PLAN
The patient is stable for discharge, with instructions to follow up with her primary care provider. She should return to the emergency department if symptoms worsen or new symptoms develop.
PATIENT EDUCATION AND COUNSELING
The patient was educated on the signs to watch for post-concussion and the importance of monitoring her blood pressure. She was informed about the need to follow up with her primary care physician and to return to the emergency department if any
concerning symptoms arise.
MEDICATION RECONCILIATION
Administered one dose of acetaminophen (Tylenol) in the emergency department for headache management.
MEDICAL DECISION MAKING
- Number and Complexity of Problems Addressed: Chronic conditions affecting care include concussion and elevated blood pressure. Differential Diagnosis includes: Hypertension, Transient Ischemic Attack, Orthostatic Hypotension, Anxiety, Dehydration,
Hypoglycemia, Medication Side Effects, Anemia, Cardiovascular Event, Neurological Disorder.
- Data:
Category 1: Clinical information was obtained from observation and no additional tests or imaging were conducted due to improvement in symptoms.
Category 2: My independent EKG interpretation: Heart Rate: 79 bpm, PA Interval: Normal, QRS Duration: Normal, Presence of left bundle branch block, left ventricular hypertrophy; suggesting ischemia.
- Risk: Consideration of Admission/Observation: Escalation of care including admission/observation was considered given the complexity and risk of the patients presenting complaint, exam findings, and her underlying comorbidities. However,
ultimately it was felt the patient is safe for outpatient management with close follow up. Reasoning: Work-up reassuring, does not reveal any acute life/organ-threatening processes, patients symptoms well controlled upon reevaluation, reexamination
is reassuring, vitals are stable, patient agreeable with discharge, and reliable for follow-up.
DIAGNOSIS
- Concussion (S06.0X0A)
- Elevated blood pressure (R03.0)
- Headache, unspecified (R51.9)
Past History
Past History
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
ED Past Surgical History: Appendectomy, Bowel resection (Colon resection), Cholecystectomy, Gynecological (Hysterectomy) and Other (Bilateral mastectomy)
Social History
Tobacco: Non-smoker
Alcohol: None
Drug: None
Personal:
Living: alone
Employment: Employed
Family History
Family History: Diabetes, Hypertension and Other (Cancer ); Negative Early CAD, CAD or Sudden
Phy Exam
Physical Exam
Physical Exam:
.
Course
Orders/Labs/Results
Orders:
Orders
06/11/25 19:21
Electrocardiogram (*1) Urgent
Reason for Study: Hypertension, Benign
CT Head W/o Iv Contrast Urgent
Comment:
Reason For Exam: head injury
EKG- Treatment ONCE
06/11/25 19:31
Complete Blood Count/With Diff Urgent
Comprehensive Metabolic Panel Urgent
Troponin I Urgent
06/11/25 20:15
Cardiac Monitoring- Treatment ONCE
06/11/25 20:57
Acetaminophen [Tylenol] 650 mg PO NOW STA
Abnormal Lab Results
06/11/25
19:31
Hgb 11.6 L g/dL
(12.0-16.0)
Hct 35.1 L %
(37.0-47.0)
MCV 78.3 L fL
(81.0-99.0)
MCH 25.9 L pg
(27.0-31.0)
RDW 15.7 H %
(11.5-14.5)
Glucose 145 H mg/dl
(70-99)
06/11/25 19:31
06/11/25 19:31
Vital Signs
Initial and Last Documented VS:
Initial Vital Signs
Temp Pulse Resp BP Pulse Ox
98 F 81 20 201/99 99
06/11/25 19:18 06/11/25 19:18 06/11/25 19:18 06/11/25 19:18 06/11/25 19:18
Last Documented Vital Signs
Temp Pulse Resp BP Pulse Ox
98 F 82 21 146/84 100
06/11/25 19:18 06/11/25 21:00 06/11/25 21:00 06/11/25 21:00 06/11/25 21:00
*Pulse Oximetry
SaO2: 100
Oxygen Mode of Delivery: Room air
Patient hypoxic: no
*Critical Care Note
Total Time (30-74mins, 75-104mins- exclusive of procedures): Not Applicable
ED Attending Note
-
Portions of this chart may have been created with voice recognition software.� Occasional wrong word or��sound alike� substitutions may have occurred due to the inherent limitations of voice recognition software.
Discharge Plan
Departure
Patient Disposition: Home (Routine Discharge)
Date of Disposition: 06/11/25
Time of Disposition: 22:30
Patient with high blood pressure during this ER visit?: Yes
Condition: Good
Discharge Problem:
HTN (hypertension), Concussion
Instructions: Concussion, Adult (DC), Head Injury in Adults (DC), BLOOD PRESSURE
Prescriptions:
No Action
albuterol sulfate 1 PUFF HFA aerosol inhaler
2 puff inhalation R Q4HPRN PRN (Reason: wheezing)
metformin 500 MG tablet extended release 24 hr
2,000 mg PO QPM
amlodipine 5 MG tablet
5 mg PO DAILY
gabapentin 300 MG capsule
300 mg PO BID
acetaminophen [Tylenol Extra Strength] 500 MG tablet
1,000 mg PO Q6HPRN PRN (Reason: mild pain)
atorvastatin [Lipitor] 20 mg Tablet
20 mg PO QPM
Referrals:
William Conte MD [Family Provider, Internal Medicine] - Call in 1-3 days for appt
Interventions
Interventions:
*Risk Screen - Suicide Last Done: 06/11/25 20:00
*General Assessment Last Done: 06/11/25 19:18
*Neglect/Abuse Screening Last Done: 06/11/25 20:00
*ED COVID-19 Vaccine History Last Done: 06/11/25 20:00
ED- Neurological Assessment Last Done: 06/11/25 20:00
ED-Skin Assessment Last Done: 06/11/25 20:00
Discharge Date and Time
Print Language: DANISH
[2025-06-11 22:34] VITALS: BP 147/68
== END 2025-06-11 22:37 | disposition home or self-care (01) ==
LOC: EMR 19:11
PROVIDERS: Student in an Organized Health Care Education/Training Program; EMERGENCY PHYSICIAN Emergency Medicine; FAMILY PHYSICIAN Internal Medicine
DX: I10 Essential (primary) hypertension (principal); S06.0XAA Concussion with loss of consciousness status unknown, initial encounter; W19.XXXA Unspecified fall, initial encounter; E11.9 Type 2 diabetes mellitus without complications; J45.909 Unspecified asthma, uncomplicated; G47.30 Sleep apnea, unspecified; Z15.09 Genetic susceptibility to other malignant neoplasm; Z79.84 Long term (current) use of oral hypoglycemic drugs; Z85.3 Personal history of malignant neoplasm of breast; Z85.038 Personal history of other malignant neoplasm of large intestine; Z85.42 Personal history of malignant neoplasm of other parts of uterus; Z85.828 Personal history of other malignant neoplasm of skin; Z90.13 Acquired absence of bilateral breasts and nipples; Z90.49 Acquired absence of other specified parts of digestive tract; Z90.710 Acquired absence of both cervix and uterus; Z83.3 Family history of diabetes mellitus; Z82.49 Family history of ischemic heart disease and other diseases of the circulatory system; Z80.9 Family history of malignant neoplasm, unspecified
CPT/HCPCS: 99284; 70450; 80053; 84484; 85025; 93005

== ENCOUNTER → 2025-06-27 08:11 | Outpatient (REF) | payer MEDICARE, OTHER, SELFPAY ==
[2025-06-27 09:34] LABS: Hematocrit 34.3 % (37.0-47.0); Hemoglobin 11.0 g/dL (12.0-16.0); Mean Corp Hgb Conc. 32.1 g/dL (33.0-37.0); Mean Corpuscular Volume 78.9 fL (81.0-99.0); Nucleated Red Blood Cells % 0 %; Platelet Count 239 10^3/uL (130-400); Red Cell Dist. Width 15.8 % (11.5-14.5)
[2025-06-27 09:51] LABS: Glycohemoglobin (HgbA1c) 7.2 % (4.0-5.6)
[2025-06-27 10:30] LABS: ALT (SGPT) 17 U/L (0-35); AST (SGOT) 19 U/L (14-36); Albumin 4.3 g/dl (3.5-5.0); Alkaline Phosphatase 86 U/L (38-126); Glucose 145 mg/dl (70-99); HDL Cholesterol 59 mg/dl; Iron 56 ug/dl (37-170); LDL Cholesterol, Calculated 43 mg/dl; Total Protein 6.9 g/dl (6.3-8.2); Very Low Density Lipoprotein 16 mg/dl (0-30)
[2025-06-27 10:40] LABS: Total Iron Binding Capacity 356 ug/dl (265-497)
== END ==
LOC: REG 08:11
PROVIDERS: ATTENDING PHYSICIAN Internal Medicine
DX: D64.9 Anemia, unspecified (principal); E11.9 Type 2 diabetes mellitus without complications; E66.9 Obesity, unspecified; I10 Essential (primary) hypertension
CPT/HCPCS: 36415; 80061; 80076; 82947; 83036; 83540; 83550; 85025

== ENCOUNTER → 2025-07-08 13:00 | Outpatient (REF) | payer MEDICARE, OTHER, SELFPAY | LOC: RAD 13:00 | PROVIDERS: ATTENDING PHYSICIAN Internal Medicine | DX: M25.551 Pain in right hip (principal) | CPT/HCPCS: 73502 ==

== ENCOUNTER 2025-08-01 09:05 | Outpatient (RCR) | payer MEDICARE, OTHER, SELFPAY ==
[2025-07-25 11:30] VITALS: BP 134/48
[2025-07-25] MEDS: INJECTAFER 265 MG IV (11:43)
[2025-07-25 12:41] VITALS: BP 132/49
[2025-08-01 09:15] VITALS: BP 128/55
[2025-08-01] MEDS: INJECTAFER 265 MG IV (09:31)
== END 2025-08-01 23:59 | disposition home or self-care (01) ==
LOC: OID 09:05
PROVIDERS: ATTENDING PHYSICIAN Internal Medicine
DX: D50.8 Other iron deficiency anemias (principal); K50.00 Crohn's disease of small intestine without complications
CPT/HCPCS: 96365; J1439